=== PATIENT | male | born 1975 | race African-American/Black ===

== ENCOUNTER 2019-08-25 20:10 | Inpatient (IN) | payer MEDICAID ==
[~2019-08-25] VITALS: Ht 175.3 cm; Wt 75.8 kg
[2019-08-25] MEDS ORDERED: nitroGLYCERIN 0.4mg/hour patch TD ONE (21:05)
[2019-08-25] MEDS ORDERED: aspirin 81mg tab.chew PO ONE (21:05)
[2019-08-25] MEDS ORDERED: carVEDilol 12.5mg tablet PO SCH (21:05)
[2019-08-25] MEDS ORDERED: carVEDilol 12.5mg tablet PO ONE (21:05)
[2019-08-25] MEDS ORDERED: metoprolol tartrate 1mg/ml inj IV ONE (21:05)
[2019-08-25 21:29] LABS: CLARITY,URINE SLIGHTLY CLOUDY (Clear); COLOR,URINE YELLOW (Yellow); GLUCOSE, URINE NEGATIVE (Neg); KETONES,URINE NEGATIVE (Neg); LEUKOCYTE ESTERASE ,URINE NEGATIVE (Neg); NITRITES, URINE NEGATIVE (Neg); OCCULT BLOOD,URINE NEGATIVE (Neg); PH,URINE 5.5 (4.8-8.0); PROTEIN,URINE 100 mg/dl (Neg); UROBILINOGEN,URINE 0.2 E.U/dL (0.2-1.0)
[2019-08-25 21:33] LABS: UA COLLECTION TYPE URINAL
[2019-08-25 21:37] LABS: AMORPHOUS URATES 1+; BACTERIA,URINE 1+ /HPF (Neg); CAL OXALATE CRYSTALS FEW /HPF (NEGATIVE); HYALINE CASTS >30 /LPF (NEGATIVE); MUCUS STRANDS MANY /LPF (Neg); RBC,URINE NONE SEEN /HPF (0-2); SQUAMOUS EPITHELIAL CELL,UR NONE SEEN /LPF (FEW)
[2019-08-25 21:42] LABS: URINE AMPHETAMINE SCREEN NEGATIVE (Neg); URINE BARBITUATE SCREEN NEGATIVE (Neg); URINE BENZODIAZEPINES SCREEN NEGATIVE (Neg); URINE CANNABINOID SCREEN POSITIVE (Neg); URINE COCAINE SCREEN NEGATIVE (Neg); URINE METHADONE SCREEN NEGATIVE (Neg); URINE OPIATE SCREEN NEGATIVE (Neg); URINE PHENCYCLIDINE SCREEN NEGATIVE (Neg)
[2019-08-25 21:53] LABS: PARTIAL THROMBOPLASTIN TIME 27 SECONDS (22-32)
[2019-08-25 21:55] LABS: EOSINOPHILS # (AUTO) 0.2 X10'3 (0-0.9); HEMATOCRIT 40.7 % (42.0-52.0); HEMOGLOBIN 14.1 g/dl (14.0-17.9); MEAN CORPUSCULAR HGB CONC 34.6 g/dL (33.0-36.5); NEUTROPHILS # (AUTO) 4.2 X10'3 (1.8-7.7)
[2019-08-25 21:57] LABS: BASOPHILS # (AUTO) 0.2 X10'3 (0-0.2); BASOPHILS % (AUTO) 2.5 % (0-1); EOSINOPHILS % (AUTO) 2.8 % (0-6); LYMPHOCYTES # (AUTO) 1.7 X10'3 (1.1-4.8); LYMPHOCYTES % (AUTO) 25.4 % (21-51); MEAN CORPUSCULAR VOLUME 83.9 FL (78-98); MEAN PLATELET VOLUME 10.3 FL (7.4-10.4); MONOCYTES # (AUTO) 0.4 X10'3 (0-0.9); MONOCYTES % (AUTO) 5.3 % (2-12); PLATELET COUNT 260 X10'3 (140-440); RED BLOOD COUNT 4.86 X10'6 (4.70-6.10); RED CELL DISTRIBUTION WIDTH 16.1 % (11.5-14.5); WHITE BLOOD COUNT 6.6 X10'3 (4.5-11.0)
[2019-08-25 22:02] LABS: ALANINE AMINOTRANSFERASE 44 U/L (12-78); ALBUMIN 2.9 G/DL (3.4-5.0); ALBUMIN/GLOBULIN RATIO 1.1 (1.1-1.5); ALKALINE PHOSPHATASE 89 IU/L (46-116); ANION GAP 10 (8-16); ASPARTATE AMINO TRANSFERASE 21 U/L (10-37); BILIRUBIN,TOTAL 0.8 MG/DL (0.1-1.0); BLOOD UREA NITROGEN 27 MG/DL (7-18); BUN/CREATININE RATIO 13.9 (5.4-32.0); CALCIUM 8.3 MG/DL (8.5-10.1); CHLORIDE 109 MMOL/L (99-107); CREATININE 1.94 MG/DL (0.60-1.10); GLUCOSE 93 MG/DL (70-104); POTASSIUM 4.1 MMOL/L (3.5-5.1); SODIUM 141 MMOL/L (135-145); TOTAL CARBON DIOXIDE 22.1 MMOL/L (24-32); TOTAL PROTEIN 5.5 G/DL (6.4-8.2); eGFR 38 ML/MIN
[2019-08-25 22:11] LABS: MAGNESIUM 1.7 MG/DL (1.5-2.4)
[2019-08-25 22:21] LABS: LARGE PLATELETS MODERATE; PLATELET ESTIMATE NORMAL
[2019-08-25] MEDS ORDERED: NO HOME MEDS (22:58)
[2019-08-25] MEDS ORDERED: furosemide 40mg/4ml inj IV ONE (23:10)
[2019-08-25] MEDS ORDERED: ondansetron/PF 4mg/2ml inj IV PRN (23:50)
[2019-08-25] MEDS ORDERED: mag hydrox/Alum hydrox/simeth 30ml oral suspension PO PRN (23:50)
[2019-08-25] MEDS ORDERED: acetaminophen 325mg tablet PO PRN (23:50)
[2019-08-25] MEDS ORDERED: magnesium 2GM in 50ml NS 50 ML IV PRN (23:50)
[2019-08-25] MEDS ORDERED: magnesium Cl slow-release 64mg tablet PO PRN (23:50)
[2019-08-25] MEDS ORDERED: magnesium hydroxide 30ml (MOM) UD suspension PO PRN (23:50)
[2019-08-25] MEDS ORDERED: potassium Cl 20 mEq SR tablet PO PRN ×2 (23:50)
[2019-08-25] MEDS ORDERED: magnesium 4gm in 100ml NS 100 ML IV PRN (23:50)
[2019-08-25] MEDS ORDERED: potassium CL 10mEq/100ml bag 100 ML IV PRN ×2 (23:50)
[2019-08-26] VITALS (7 sets, daily range): BP systolic 120–146; BP diastolic 83–102
[2019-08-26 00:12] LABS: HEMOGLOBIN A1C 5.5 % (4.5-6.2)
--- NOTE | 2019-08-26 00:13 | NUR ---
Patient in room ED 15. I have received report from FIDE High and had the opportunity to ask questions and assume patient care.
[2019-08-26 04:04] LABS: BASOPHILS # (AUTO) 0.1 X10'3 (0-0.2); EOSINOPHILS # (AUTO) 0.1 X10'3 (0-0.9); HEMOGLOBIN 12.5 g/dl (14.0-17.9); LYMPHOCYTES # (AUTO) 1.1 X10'3 (1.1-4.8); MEAN PLATELET VOLUME 10.5 FL (7.4-10.4); NEUTROPHILS # (AUTO) 3.7 X10'3 (1.8-7.7); WHITE BLOOD COUNT 5.3 X10'3 (4.5-11.0)
[2019-08-26 04:05] LABS: BASOPHILS % (AUTO) 1.8 % (0-1); HEMATOCRIT 36.5 % (42.0-52.0); LYMPHOCYTES % (AUTO) 21.3 % (21-51); MEAN CORPUSCULAR HEMOGLOBIN 28.9 PG (27.0-31.0); MEAN CORPUSCULAR HGB CONC 34.3 g/dL (33.0-36.5); MEAN CORPUSCULAR VOLUME 84.3 FL (78-98); MONOCYTES # (AUTO) 0.2 X10'3 (0-0.9); MONOCYTES % (AUTO) 4.5 % (2-12); NEUTROPHILS % (AUTO) 70.4 % (42-75); PLATELET COUNT 221 X10'3 (140-440); RED BLOOD COUNT 4.33 X10'6 (4.70-6.10); RED CELL DISTRIBUTION WIDTH 16.1 % (11.5-14.5)
[2019-08-26 04:15] LABS: ALANINE AMINOTRANSFERASE 40 U/L (12-78); ALBUMIN 2.7 G/DL (3.4-5.0); ALBUMIN/GLOBULIN RATIO 1.2 (1.1-1.5); ALKALINE PHOSPHATASE 76 IU/L (46-116); ANION GAP 5 (8-16); ASPARTATE AMINO TRANSFERASE 23 U/L (10-37); BILIRUBIN,TOTAL 0.7 MG/DL (0.1-1.0); BLOOD UREA NITROGEN 25 MG/DL (7-18); BUN/CREATININE RATIO 13.7 (5.4-32.0); CALCIUM 8.2 MG/DL (8.5-10.1); CHLORIDE 110 MMOL/L (99-107); CREATININE 1.83 MG/DL (0.60-1.10); GLUCOSE 125 MG/DL (70-104); SODIUM 143 MMOL/L (135-145); TOTAL CARBON DIOXIDE 27.6 MMOL/L (24-32); TOTAL PROTEIN 4.9 G/DL (6.4-8.2); eGFR 49 ML/MIN
[2019-08-26 04:19] LABS: CHOL/HDL RATIO 4.2 (0.00-4.99); CHOLESTEROL 129 MG/DL (0-200); HDL CHOLESTEROL 31 MG/DL (35-60); LDL CHOLESTEROL 101 MG/DL (50-100); MAGNESIUM 1.7 MG/DL (1.5-2.4); TRIGLYCERIDES 56 MG/DL (20-135)
[2019-08-26 04:58] LABS: GIANT PLATELET FEW; PLATELET ESTIMATE NORMAL
--- NOTE | 2019-08-26 06:06 | NUR ---
Problems reprioritized. Patient report given, questions answered & plan of care reviewed with FIDE Alvarado.
--- NOTE | 2019-08-26 06:21 | NUR ---
Patient in room PCU 3014. I have received report from Sherron ELIZALDE and had the opportunity to ask questions and assume patient care.
[2019-08-26] MEDS: carvedilol 6.25mg tablet PO SCH ×2 (07:38→20:09)
[2019-08-26] MEDS: heparin, porcine 5000 units/ml vial SQ SCH ×2 (07:38→20:08)
[2019-08-26] MEDS: lisinopril 5mg tablet PO SCH (07:38)
[2019-08-26] MEDS: furosemide 20 MG/2 ML vial IV SCH ×2 (07:39→20:00)
[2019-08-26] MEDS: K and/or MAG REPLACEMENT MC SCH ×2 (08:00→20:00)
[2019-08-27] VITALS (17 sets, daily range): BP systolic 125–154; BP diastolic 90–115
--- NOTE | 2019-08-27 00:43 | NUR ---
Paged Dr. White PAGER ID: [phone] MESSAGE: Isa [facility] [phone]. Fransico Swenson [id number]. Patient is having a headache. BP is 146/102. He received coreg 6.25 mg and Lasix 60mg tonight. Have Tylenol ordered for fever but nothing for headache.
[2019-08-27] MEDS ORDERED: acetaminophen 325mg tablet PO PRN (01:40)
[2019-08-27 05:09] LABS: EOSINOPHILS # (AUTO) 0.2 X10'3 (0-0.9); HEMATOCRIT 38.4 % (42.0-52.0); HEMOGLOBIN 13.2 g/dl (14.0-17.9); MONOCYTES # (AUTO) 0.4 X10'3 (0-0.9); WHITE BLOOD COUNT 5.4 X10'3 (4.5-11.0)
[2019-08-27 05:11] LABS: BASOPHILS % (AUTO) 0.5 % (0-1); EOSINOPHILS % (AUTO) 3.4 % (0-6); LYMPHOCYTES # (AUTO) 1.4 X10'3 (1.1-4.8); LYMPHOCYTES % (AUTO) 26.2 % (21-51); MEAN CORPUSCULAR HEMOGLOBIN 28.5 PG (27.0-31.0); MEAN CORPUSCULAR HGB CONC 34.3 g/dL (33.0-36.5); MEAN CORPUSCULAR VOLUME 83.1 FL (78-98); MEAN PLATELET VOLUME 10.1 FL (7.4-10.4); MONOCYTES % (AUTO) 6.9 % (2-12); NEUTROPHILS # (AUTO) 3.4 X10'3 (1.8-7.7); PLATELET COUNT 231 X10'3 (140-440); RED BLOOD COUNT 4.62 X10'6 (4.70-6.10); RED CELL DISTRIBUTION WIDTH 15.9 % (11.5-14.5)
[2019-08-27 05:26] LABS: ALANINE AMINOTRANSFERASE 43 U/L (12-78); ALBUMIN 2.6 G/DL (3.4-5.0); ALKALINE PHOSPHATASE 72 IU/L (46-116); ANION GAP 6 (8-16); ASPARTATE AMINO TRANSFERASE 22 U/L (10-37); BILIRUBIN,TOTAL 1.1 MG/DL (0.1-1.0); BLOOD UREA NITROGEN 26 MG/DL (7-18); BUN/CREATININE RATIO 13.3 (5.4-32.0); CALCIUM 8.3 MG/DL (8.5-10.1); CHLORIDE 108 MMOL/L (99-107); CREATININE 1.96 MG/DL (0.60-1.10); GLUCOSE 100 MG/DL (70-104); MAGNESIUM 1.7 MG/DL (1.5-2.4); SODIUM 145 MMOL/L (135-145); TOTAL CARBON DIOXIDE 30.8 MMOL/L (24-32); TOTAL PROTEIN 5.1 G/DL (6.4-8.2); eGFR 45 ML/MIN
[2019-08-27 06:12] LABS: LARGE PLATELETS FEW; PLATELET ESTIMATE NORMAL
[2019-08-27 06:14] LABS: GIANT PLATELET FEW
--- NOTE | 2019-08-27 06:42 | NUR ---
Patient in room PCU 3014. I have received report from FIDE Moss and had the opportunity to ask questions and assume patient care.
--- NOTE | 2019-08-27 06:51 | NUR ---
Problems reprioritized. Patient report given, questions answered & plan of care reviewed with Alanna ELIZALDE and Eric ELIZALDE.
[2019-08-27] MEDS: K and/or MAG REPLACEMENT MC SCH ×2 (08:00→20:00)
[2019-08-27] MEDS: aspirin 81mg tab.chew PO SCH (08:15)
[2019-08-27] MEDS: lisinopril 5mg tablet PO SCH (08:17)
[2019-08-27] MEDS: carvedilol 6.25mg tablet PO SCH ×3 (08:17→20:45)
[2019-08-27] MEDS: heparin, porcine 5000 units/ml vial SQ SCH ×2 (08:18→20:44)
[2019-08-27] MEDS: furosemide 20 MG/2 ML vial IV SCH ×2 (08:27→20:57)
--- NOTE | 2019-08-27 11:10 | NUR ---
Dr. Parrish at bedside. MD notified of pt's 24 hour fluid balance and elevated blood pressures this shift. New orders received for changes in medications.
[2019-08-27] MEDS: amLODIPine 5mg tablet PO SCH (12:19)
[2019-08-27] MEDS ORDERED: DOBUTamine-DoBUTrex 500mg/D5W 250 ML IV SCH (12:35)
--- NOTE | 2019-08-27 18:30 | NUR ---
Problems reprioritized. Patient report given, questions answered & plan of care reviewed with FIDE Moss.
--- NOTE | 2019-08-27 18:31 | NUR ---
Patient in room PCU 3014. I have received report from Alanna ELIZALDE and Eric RN and had the opportunity to ask questions and assume patient care. Patient resting in bed with family at bedside. VS stable, dobutamine drip running @ 2mcg. Patient has been accepted by Dr. Qureshi at [facility], will continue trying to arrange transport.
[2019-08-28] VITALS (15 sets, daily range): BP systolic 112–140; BP diastolic 78–111
[2019-08-28 05:50] LABS: BASOPHILS % (AUTO) 0.4 % (0-1); EOSINOPHILS # (AUTO) 0.1 X10'3 (0-0.9); EOSINOPHILS % (AUTO) 2.4 % (0-6); HEMOGLOBIN 14.7 g/dl (14.0-17.9); LYMPHOCYTES # (AUTO) 1.6 X10'3 (1.1-4.8); LYMPHOCYTES % (AUTO) 30.9 % (21-51); MEAN CORPUSCULAR HEMOGLOBIN 28.5 PG (27.0-31.0); MEAN CORPUSCULAR HGB CONC 34.2 g/dL (33.0-36.5); MEAN CORPUSCULAR VOLUME 83.4 FL (78-98); MEAN PLATELET VOLUME 10.1 FL (7.4-10.4); MONOCYTES # (AUTO) 0.3 X10'3 (0-0.9); MONOCYTES % (AUTO) 6.1 % (2-12); NEUTROPHILS # (AUTO) 3.1 X10'3 (1.8-7.7); NEUTROPHILS % (AUTO) 60.2 % (42-75); PLATELET COUNT 256 X10'3 (140-440); RED BLOOD COUNT 5.16 X10'6 (4.70-6.10); RED CELL DISTRIBUTION WIDTH 15.9 % (11.5-14.5); WHITE BLOOD COUNT 5.2 X10'3 (4.5-11.0)
[2019-08-28 06:19] LABS: ALANINE AMINOTRANSFERASE 39 U/L (12-78); ALBUMIN 2.6 G/DL (3.4-5.0); ALKALINE PHOSPHATASE 74 IU/L (46-116); ANION GAP 7 (8-16); ASPARTATE AMINO TRANSFERASE 17 U/L (10-37); BLOOD UREA NITROGEN 24 MG/DL (7-18); BUN/CREATININE RATIO 13.4 (5.4-32.0); CALCIUM 8.3 MG/DL (8.5-10.1); CHLORIDE 108 MMOL/L (99-107); CREATININE 1.79 MG/DL (0.60-1.10); GLUCOSE 82 MG/DL (70-104); MAGNESIUM 1.7 MG/DL (1.5-2.4); POTASSIUM 3.6 MMOL/L (3.5-5.1); SODIUM 145 MMOL/L (135-145); TOTAL CARBON DIOXIDE 30.4 MMOL/L (24-32); TOTAL PROTEIN 5.2 G/DL (6.4-8.2); eGFR 50 ML/MIN
--- NOTE | 2019-08-28 06:23 | NUR ---
Patient in room PCU 3014. I have received report from FIDE Moss and had the opportunity to ask questions and assume patient care.
--- NOTE | 2019-08-28 06:29 | NUR ---
Problems reprioritized. Patient report given, questions answered & plan of care reviewed with Gino ELIZALDE.
[2019-08-28] MEDS: K and/or MAG REPLACEMENT MC SCH ×2 (08:00→19:13)
[2019-08-28] MEDS: aspirin 81mg tab.chew PO SCH (08:45)
[2019-08-28] MEDS: furosemide 20 MG/2 ML vial IV SCH ×2 (08:45→19:03)
[2019-08-28] MEDS: amLODIPine 5mg tablet PO SCH (08:46)
[2019-08-28] MEDS: lisinopril 5mg tablet PO SCH (08:46)
[2019-08-28] MEDS: carvedilol 6.25mg tablet PO SCH ×2 (08:46→19:02)
[2019-08-28] MEDS: heparin, porcine 5000 units/ml vial SQ SCH ×2 (08:46→19:02)
--- NOTE | 2019-08-28 13:39 | NUR ---
[phone] MESSAGE: Alexsandra Bateman Rm [id number] is insisting on taking a shower. which means be off mobile for the time. DINORAH said no, he is insisting and wants to talk to you. FIDE Liu
--- NOTE | 2019-08-28 18:29 | NUR ---
Patient in room PCU 3014. I have received report from Gino ELIZALDE and had the opportunity to ask questions and assume patient care.
--- NOTE | 2019-08-28 19:00 | NUR ---
Problems reprioritized. Patient report given, questions answered & plan of care reviewed with FIDE Amaya.
--- NOTE | 2019-08-28 19:00 | NUR ---
Patient in room PCU 3014. I have received report from and had the opportunity to ask questions and assume patient care.
[2019-08-29] VITALS (17 sets, daily range): BP systolic 109–141; BP diastolic 78–102
--- NOTE | 2019-08-29 05:14 | NUR ---
PAGER ID: [phone] MESSAGE: Leela Bateman [phone]: Pt is currently on Dobutamine at 2mcg/kg/min for heart failure. BPs and HR have been trending down. Last BP was 115/82 down from 130/107 with a heart rate of 92 down from 111. -Monique ELIZALDE [id number]
[2019-08-29 06:23] LABS: BASOPHILS # (AUTO) 0.1 X10'3 (0-0.2); BASOPHILS % (AUTO) 1.2 % (0-1); EOSINOPHILS # (AUTO) 0.2 X10'3 (0-0.9); EOSINOPHILS % (AUTO) 3.2 % (0-6); HEMATOCRIT 44.4 % (42.0-52.0); HEMOGLOBIN 15.1 g/dl (14.0-17.9); LYMPHOCYTES # (AUTO) 1.7 X10'3 (1.1-4.8); LYMPHOCYTES % (AUTO) 26.6 % (21-51); MEAN CORPUSCULAR HEMOGLOBIN 28.6 PG (27.0-31.0); MEAN CORPUSCULAR HGB CONC 34.1 g/dL (33.0-36.5); MEAN PLATELET VOLUME 10.2 FL (7.4-10.4); MONOCYTES # (AUTO) 0.5 X10'3 (0-0.9); MONOCYTES % (AUTO) 7.6 % (2-12); NEUTROPHILS # (AUTO) 3.9 X10'3 (1.8-7.7); NEUTROPHILS % (AUTO) 61.4 % (42-75); PLATELET COUNT 263 X10'3 (140-440); RED BLOOD COUNT 5.29 X10'6 (4.70-6.10); RED CELL DISTRIBUTION WIDTH 15.7 % (11.5-14.5); WHITE BLOOD COUNT 6.3 X10'3 (4.5-11.0)
--- NOTE | 2019-08-29 06:36 | NUR ---
Patient in room PCU 3014. I have received report from FIDE Amaya and had the opportunity to ask questions and assume patient care. Patient is sleeping at this time with a present chest rise/fall. Will continue to monitor.
--- NOTE | 2019-08-29 06:38 | NUR ---
Problems reprioritized. Patient report given, questions answered & plan of care reviewed with Aleyda ELIZALDE.
[2019-08-29 06:40] LABS: ALANINE AMINOTRANSFERASE 40 U/L (12-78); ALBUMIN 2.7 G/DL (3.4-5.0); ALKALINE PHOSPHATASE 86 IU/L (46-116); ANION GAP 9 (8-16); ASPARTATE AMINO TRANSFERASE 20 U/L (10-37); BILIRUBIN,TOTAL 0.6 MG/DL (0.1-1.0); CALCIUM 8.4 MG/DL (8.5-10.1); CHLORIDE 105 MMOL/L (99-107); CREATININE 1.68 MG/DL (0.60-1.10); GLUCOSE 75 MG/DL (70-104); MAGNESIUM 1.9 MG/DL (1.5-2.4); POTASSIUM 3.8 MMOL/L (3.5-5.1); SODIUM 143 MMOL/L (135-145); TOTAL CARBON DIOXIDE 29.2 MMOL/L (24-32); TOTAL PROTEIN 5.4 G/DL (6.4-8.2); eGFR 54 ML/MIN
[2019-08-29 07:14] LABS: BLOOD UREA NITROGEN 25 MG/DL (7-18); BUN/CREATININE RATIO 14.9 (5.4-32.0)
[2019-08-29] MEDS: aspirin 81mg tab.chew PO SCH (07:59)
[2019-08-29] MEDS: carvedilol 6.25mg tablet PO SCH ×2 (07:59→20:22)
[2019-08-29] MEDS: K and/or MAG REPLACEMENT MC SCH ×2 (08:00→20:00)
[2019-08-29] MEDS: furosemide 20 MG/2 ML vial IV SCH ×2 (08:00→20:22)
[2019-08-29] MEDS: lisinopril 5mg tablet PO SCH (08:00)
[2019-08-29] MEDS: amLODIPine 5mg tablet PO SCH (08:00)
[2019-08-29] MEDS: heparin, porcine 5000 units/ml vial SQ SCH ×2 (08:00→20:00)
[2019-08-29] MEDS: DOBUTamine-DoBUTrex 500mg/D5W 250 ML IV SCH (12:37)
--- NOTE | 2019-08-29 18:34 | NUR ---
Problems reprioritized. Patient report given, questions answered & plan of care reviewed with FIDE Nash. Patient is sitting in his chair eating dinner with his girlfriend and has no complaints at this time.
--- NOTE | 2019-08-29 18:54 | NUR ---
Patient in room PCU 3014. I have received report from Heather. Eric Mchugh and had the opportunity to ask questions and assume patient care.
[2019-08-30] VITALS (14 sets, daily range): BP systolic 92–127; BP diastolic 58–97
[2019-08-30 05:59] LABS: BASOPHILS % (AUTO) 0.5 % (0-1); EOSINOPHILS # (AUTO) 0.2 X10'3 (0-0.9); LYMPHOCYTES # (AUTO) 1.5 X10'3 (1.1-4.8); MEAN CORPUSCULAR HGB CONC 34.4 g/dL (33.0-36.5)
[2019-08-30 06:00] LABS: EOSINOPHILS % (AUTO) 4.8 % (0-6); HEMOGLOBIN 15.5 g/dl (14.0-17.9); LYMPHOCYTES % (AUTO) 31.7 % (21-51); MEAN CORPUSCULAR HEMOGLOBIN 28.7 PG (27.0-31.0); MEAN CORPUSCULAR VOLUME 83.5 FL (78-98); MEAN PLATELET VOLUME 9.7 FL (7.4-10.4); MONOCYTES # (AUTO) 0.4 X10'3 (0-0.9); NEUTROPHILS # (AUTO) 2.6 X10'3 (1.8-7.7); PLATELET COUNT 261 X10'3 (140-440); RED BLOOD COUNT 5.38 X10'6 (4.70-6.10); RED CELL DISTRIBUTION WIDTH 15.7 % (11.5-14.5); WHITE BLOOD COUNT 4.8 X10'3 (4.5-11.0)
--- NOTE | 2019-08-30 06:20 | NUR ---
Patient in room PCU 3014. I have received report from Saad RN (ACCE RN) and had the opportunity to ask questions and assume patient care. Patient is lying in bed on his cell phone and has no complaints at this time. Will continue to monitor.
--- NOTE | 2019-08-30 06:20 | NUR ---
Problems reprioritized. Patient report given, questions answered & plan of care reviewed with Aleyda Reyes Rn.
[2019-08-30 06:22] LABS: ALANINE AMINOTRANSFERASE 36 U/L (12-78); ALBUMIN 2.7 G/DL (3.4-5.0); ALBUMIN/GLOBULIN RATIO 0.9 (1.1-1.5); ALKALINE PHOSPHATASE 99 IU/L (46-116); ANION GAP 5 (8-16); ASPARTATE AMINO TRANSFERASE 17 U/L (10-37); BILIRUBIN,TOTAL 0.4 MG/DL (0.1-1.0); BLOOD UREA NITROGEN 27 MG/DL (7-18); BUN/CREATININE RATIO 16.1 (5.4-32.0); CALCIUM 8.5 MG/DL (8.5-10.1); CHLORIDE 106 MMOL/L (99-107); CREATININE 1.68 MG/DL (0.60-1.10); GLUCOSE 90 MG/DL (70-104); MAGNESIUM 2.1 MG/DL (1.5-2.4); POTASSIUM 3.9 MMOL/L (3.5-5.1); SODIUM 143 MMOL/L (135-145); TOTAL CARBON DIOXIDE 31.9 MMOL/L (24-32); TOTAL PROTEIN 5.6 G/DL (6.4-8.2); eGFR 54 ML/MIN
[2019-08-30] MEDS: carvedilol 6.25mg tablet PO SCH ×2 (07:40→20:23)
[2019-08-30] MEDS: furosemide 20 MG/2 ML vial IV SCH ×2 (07:40→20:22)
[2019-08-30] MEDS: amLODIPine 5mg tablet PO SCH (07:40)
[2019-08-30] MEDS: lisinopril 5mg tablet PO SCH (07:40)
[2019-08-30] MEDS: aspirin 81mg tab.chew PO SCH (07:40)
[2019-08-30] MEDS: heparin, porcine 5000 units/ml vial SQ SCH ×2 (08:00→20:00)
[2019-08-30] MEDS: K and/or MAG REPLACEMENT MC SCH ×2 (08:00→20:00)
--- NOTE | 2019-08-30 18:15 | NUR ---
Patient in room PCU 3014. I have received report from Aleyda ELIZALDE and had the opportunity to ask questions and assume patient care. Patient visiting with family at bedside, he is comfortable, all VS normal (pt. on mobile), cardizem drip running at 3 mcg/kg/min.
--- NOTE | 2019-08-30 18:16 | NUR ---
Problems reprioritized. Patient report given, questions answered & plan of care reviewed with FIDE Moss. Patient is sitting in bed and is on his cell phone, with no complaints at this time.
--- NOTE | 2019-08-30 21:47 | NUR ---
Called Dr. Dubois because patient doesn't have cbc/ cmp odered for tomorrow. No new orders. He would like to leave it up to the daytime hospitalist.
[2019-08-31 03:00] VITALS: BP 111/70
[2019-08-31] MEDS: DOBUTamine-DoBUTrex 500mg/D5W 250 ML IV SCH (03:35)
[2019-08-31 05:00] VITALS: BP 94/63
[2019-08-31 06:00] VITALS: BP 109/75
--- NOTE | 2019-08-31 06:11 | NUR ---
Problems reprioritized. Patient report given, questions answered & plan of care reviewed with Meche ELIZALDE and Eric ELIZALDE.
--- NOTE | 2019-08-31 06:35 | NUR ---
Patient in room PCU 3014A. I have received report from Isa ELIZALDE and had the opportunity to ask questions and assume patient care.
--- NOTE | 2019-08-31 06:36 | NUR ---
Patient in room PCU 3014. I have received report from FIDE Moss. Patient resting comfortably in bed. Dobutamine gtt at 3 mcg/kg. All immediate needs met.
[2019-08-31] MEDS: K and/or MAG REPLACEMENT MC SCH ×2 (08:00→20:00)
[2019-08-31] MEDS: heparin, porcine 5000 units/ml vial SQ SCH ×2 (08:00→20:00)
[2019-08-31] MEDS: furosemide 20 MG/2 ML vial IV SCH ×2 (09:14→20:26)
[2019-08-31] MEDS: carvedilol 6.25mg tablet PO SCH ×2 (09:14→20:26)
[2019-08-31] MEDS: aspirin 81mg tab.chew PO SCH (09:15)
[2019-08-31] MEDS: amLODIPine 5mg tablet PO SCH (09:15)
[2019-08-31] MEDS: lisinopril 5mg tablet PO SCH (09:15)
[2019-08-31 11:00] VITALS: BP 107/62
[2019-08-31 15:00] VITALS: BP 126/74
--- NOTE | 2019-08-31 18:15 | NUR ---
Patient in room PCU 3014. I have received report from Meche ELIZALDE and had the opportunity to ask questions and assume patient care. Patient resting in bed, awaiting transfer to [facility].
--- NOTE | 2019-08-31 18:24 | NUR ---
Problems reprioritized. Patient report given, questions answered & plan of care reviewed with Isa ELIZALDE. Patient stable at transfer of care.
--- NOTE | 2019-08-31 18:35 | NUR ---
Paged Dr. White PAGER ID: [phone] MESSAGE: Isa Ye [phone], Fransico Swenson. Bed ready for patient at [facility]. Arranging transport now. Discharge summary needs to be updated with the [facility] system through [facility] for STAT update. Thank you.
--- NOTE | 2019-08-31 23:13 | NUR ---
Patient transported by [facility] to [facility]. All valuables packed up and sent with patient. Telemetry monitoring discontinued. SAMM RN set patient's dobutamine drip up to her pump - it continues to run at 3mcg/kg/min. Called down to [facility] transfer services to let them know patient had left and to get an ETA. Called [facility] telemetry dept. and gave patient report to Frida ELIZALDE. .
== END 2019-08-31 23:00 | disposition short-term general hospital (02) | DRG 194 ==
LOC: ER 20:11 → ED HOLD 08-26 00:07 → PCU 3S 08-26 00:10
PROVIDERS: ADMIT Internal Medicine; ATTEND Hospitalist
DX: I11.0 Hypertensive heart disease with heart failure (principal); I42.0 Dilated cardiomyopathy; I50.21 Acute systolic (congestive) heart failure; N18.9 Chronic kidney disease, unspecified; F12.90 Cannabis use, unspecified, uncomplicated; N50.89 Other specified disorders of the male genital organs; R19.7 Diarrhea, unspecified; Z87.891 Personal history of nicotine dependence
CPT/HCPCS: 36415; 71045; 80053; 80061; 80305; 81001; 83036; 83735; 83880; 84443; 84484; 85025; 85610; 85730; 86658; 87081; 87088; 93005; 93306; 96374; 96375; 99285; G0378; J1250; J1644; J1940; J2405; J3490

== ENCOUNTER → 2020-06-07 | Outpatient (CLI) | payer MEDICAID ==
[~2020-06-07] MED LIST: NO HOME MEDS
== END | disposition home or self-care (01) ==
LOC: CARD DIAG 13:58
DX: I08.1 Rheumatic disorders of both mitral and tricuspid valves (principal); I50.22 Chronic systolic (congestive) heart failure
CPT/HCPCS: 93306

== ENCOUNTER 2020-12-20 21:23 | Emergency (ER) | payer MEDICAID ==
[~2020-12-20] VITALS: Ht 175.3 cm; Wt 90.9 kg
[2020-12-20 21:25] VITALS: BP 169/119
[2020-12-20 22:20] LABS: CLARITY,URINE CLOUDY (Clear); GLUCOSE, URINE NEGATIVE (Neg); KETONES,URINE NEGATIVE (Neg); LEUKOCYTE ESTERASE ,URINE TRACE (Neg); NITRITES, URINE NEGATIVE (Neg); OCCULT BLOOD,URINE NEGATIVE (Neg); PROTEIN,URINE NEGATIVE (Neg); UROBILINOGEN,URINE 0.2 E.U/dL (0.2-1.0)
[2020-12-20 22:25] LABS: COLOR,URINE DARK YELLOW (Yellow); UA COLLECTION TYPE CLN CATCH MIDSTREAM
[2020-12-20 22:32] LABS: BACTERIA,URINE FEW /HPF (Neg); MUCUS STRANDS FEW /LPF (Neg); RBC,URINE 0-2 /HPF (0-2); SQUAMOUS EPITHELIAL CELL,UR FEW /LPF (FEW); WBC CLUMPS,URINE FEW /HPF (NEGATIVE); WBC,URINE 50-100 /HPF (0-4)
[2020-12-20] MEDS ORDERED: CefTRIAXone 1000mg IM Kit (w/lidocaine diluent) IM STA (23:22)
[2020-12-20] MEDS ORDERED: DOXY100C76 PO (23:24)
[2020-12-20] MEDS ORDERED: azithromycin 250mg tablet PO ONE (23:25)
== END 2020-12-20 23:52 | disposition home or self-care (01) ==
LOC: ER 21:23
DX: Z20.2 Contact with and (suspected) exposure to infections with a predominantly sexual mode of transmission (principal); R30.0 Dysuria; R39.11 Hesitancy of micturition; I10 Essential (primary) hypertension; F12.90 Cannabis use, unspecified, uncomplicated; Z98.890 Other specified postprocedural states; Z79.2 Long term (current) use of antibiotics
CPT/HCPCS: 36415; 81001; 87088; 87491; 87591; 96372; 99283; J0696

== ENCOUNTER 2020-12-26 20:47 | Emergency (ER) | payer MEDICAID ==
[~2020-12-26] VITALS: Ht 175.3 cm; Wt 90.9 kg
[~2020-12-26 20:47] MED LIST changes: +DOXY100C76 PO
[2020-12-26 20:51] VITALS: BP 154/112
--- NOTE | 2020-12-26 20:58 | NUR ---
BP HIGH IN TRIAGE, PT STATES HE HASN'T TAKEN HIS BP MEDS YET TODAY
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
[2020-12-26] MEDS ORDERED: LORazepam 2 mg/ml vial IM ONE (22:40)
[2020-12-26] MEDS ORDERED: mupirocin 2% ointment 22GM TP STA (23:20)
== END 2020-12-26 23:24 | disposition home or self-care (01) ==
LOC: ER 20:47
DX: S63.114A Dislocation of metacarpophalangeal joint of right thumb, initial encounter (principal); M79.644 Pain in right finger(s); I10 Essential (primary) hypertension; F12.90 Cannabis use, unspecified, uncomplicated; Z98.890 Other specified postprocedural states; Z79.2 Long term (current) use of antibiotics; Y08.89XA Assault by other specified means, initial encounter; Y93.89 Activity, other specified; Y92.89 Other specified places as the place of occurrence of the external cause; Y99.8 Other external cause status
CPT/HCPCS: 26700; 73120; 73130; 96372; 99284; J2060; 20552

== ENCOUNTER 2021-12-24 12:19 | Emergency (ER) | payer MEDICAID ==
[~2021-12-24] VITALS: Ht 175.3 cm; Wt 81.8 kg
[~2021-12-24 12:19] MED LIST changes: -DOXY100C76 PO
[2021-12-24 12:50] VITALS: BP 156/119
== END 2021-12-24 15:32 | disposition home or self-care (01) ==
LOC: ER 12:20
DX: K40.90 Unilateral inguinal hernia, without obstruction or gangrene, not specified as recurrent (principal); I11.0 Hypertensive heart disease with heart failure; I50.9 Heart failure, unspecified; F12.90 Cannabis use, unspecified, uncomplicated
CPT/HCPCS: 36415; 93005; 99283

== ENCOUNTER 2022-01-17 13:37 | Outpatient (CLI) | payer MEDICAID | END 2022-01-17 23:59 | disposition home or self-care (01) | LOC: RAD 13:37 | DX: I08.1 Rheumatic disorders of both mitral and tricuspid valves (principal); I50.22 Chronic systolic (congestive) heart failure; R19.09 Other intra-abdominal and pelvic swelling, mass and lump | CPT/HCPCS: 76882; 93306 ==

== ENCOUNTER 2022-02-12 10:12 | Emergency (ER) | payer MEDICAID ==
[~2022-02-12] VITALS: Ht 175.3 cm; Wt 86.4 kg
[2022-02-12 10:45] LABS: BASOPHILS # (AUTO) 0.1 X10'3 (0-0.2); BASOPHILS % (AUTO) 0.9 % (0-1); EOSINOPHILS # (AUTO) 0.1 X10'3 (0-0.9); EOSINOPHILS % (AUTO) 0.9 % (0-6); HEMATOCRIT 44.1 % (42.0-52.0); HEMOGLOBIN 14.4 g/dl (14.0-17.9); LYMPHOCYTES # (AUTO) 0.9 X10'3 (1.1-4.8); LYMPHOCYTES % (AUTO) 11.1 % (21-51); MEAN CORPUSCULAR HEMOGLOBIN 27.8 PG (27.0-31.0); MEAN CORPUSCULAR HGB CONC 32.7 g/dL (33.0-36.5); MEAN PLATELET VOLUME 9.4 FL (7.4-10.4); MONOCYTES # (AUTO) 0.4 X10'3 (0-0.9); MONOCYTES % (AUTO) 5.3 % (2-12); NEUTROPHILS # (AUTO) 6.7 X10'3 (1.8-7.7); NEUTROPHILS % (AUTO) 81.8 % (42-75); PLATELET COUNT 245 X10'3 (140-440); RED BLOOD COUNT 5.19 X10'6 (4.70-6.10); RED CELL DISTRIBUTION WIDTH 16.8 % (11.5-14.5); WHITE BLOOD COUNT 8.2 X10'3 (4.5-11.0)
[2022-02-12 11:00] LABS: ALANINE AMINOTRANSFERASE 30 U/L (12-78); ALBUMIN 2.9 G/DL (3.4-5.0); ALBUMIN/GLOBULIN RATIO 0.9 (1.1-1.5); ALKALINE PHOSPHATASE 159 IU/L (46-116); ANION GAP 8 (8-16); ASPARTATE AMINO TRANSFERASE 32 U/L (10-37); BILIRUBIN,TOTAL 1.7 MG/DL (0.1-1.0); BLOOD UREA NITROGEN 28 MG/DL (7-18); BUN/CREATININE RATIO 15.6 (5.4-32.0); CALCIUM 8.6 MG/DL (8.5-10.1); CHLORIDE 108 MMOL/L (99-107); GLUCOSE 93 MG/DL (70-104); POTASSIUM 4.4 MMOL/L (3.5-5.1); SODIUM 142 MMOL/L (135-145); TOTAL PROTEIN 6.2 G/DL (6.4-8.2); eGFR 49 ML/MIN
[2022-02-12] MEDS ORDERED: furosemide 10 MG/1 ML 10ml inj IV ONE (11:25)
[2022-02-12] MEDS ORDERED: meclizine 12.5mg tablet PO ONE (11:55)
[2022-02-12 13:38] VITALS: BP 160/119
== END 2022-02-12 13:40 | disposition home or self-care (01) ==
LOC: ER 10:12
DX: I11.0 Hypertensive heart disease with heart failure (principal); I50.9 Heart failure, unspecified; F12.90 Cannabis use, unspecified, uncomplicated; Z87.891 Personal history of nicotine dependence
CPT/HCPCS: 36415; 71045; 80053; 83880; 84484; 85025; 93005; 96374; 99285; J1940